=== PATIENT | male | born 1975 | race Caucasian/White ===

== ENCOUNTER 2024-09-22 11:02 | Inpatient (IN) ==
[2024-09-22 11:55] LABS: INR 1.11 (0.85-1.14)
[2024-09-22 11:57] LABS: ABS Basophils 0.1 10^3/uL (0.0-0.1); ABS Eosinophils 0.1 10^3/uL (0.0-0.5); ABS Lymphocytes 2.6 10^3/uL (1.0-4.8); ABS Neutrophils 7.8 10^3/uL (1.5-7.6); ABS Nucleated RBC 0.01 10^3/ul; Eosinophil % 1.1 %; Hematocrit 46.7 % (38-53); Hemoglobin 16.1 g/dL (13.2-16.3); Lymphocyte % 22.6 %; Mean Corpuscular Hemoglobin 30.3 pg (27-33); Mean Corpuscular Hgb Conc 34.4 g/dL (31-36); Nucleated Red Blood Cells % 0.1 %/100WBC (0.0-0.8); Platelet Count 207 10^3/uL (150-450); Red Cell Distribution Width 13.7 % (12-17); White Blood Count 11.7 10^3/uL (3.6-10.2)
[2024-09-22 12:09] LABS: ALT 35 U/L (7-52); Albumin 4.7 g/dL (3.5-5.7); Alkaline Phosphatase 74 U/L (35-149); Anion Gap 6 mmol/L (2-16); Blood Urea Nitrogen 13 mg/dL (6-24); CO2 Carbon Dioxide 30 mmol/L (22-32); Calcium 9.3 mg/dL (8.6-10.3); Chloride 105 mmol/L (101-111); Creatinine, Serum 0.87 mg/dL (0.67-1.17); Globulin 2.3 g/dL (2-4); Glucose 105 mg/dL (70-100); Sodium 141 mmol/L (135-145); Total Bilirubin 0.6 mg/dL (0.2-1.0); eGFR CKD-EPI 105.8 (>60)
[2024-09-22 12:11] LABS: High Sens Troponin Baseline 14 pg/mL (<20)
[2024-09-22 12:34] LABS: TSH Ultra Thyroid Stim Horm 2.24 mcIU/mL (0.34-5.60)
[2024-09-22 12:41] LABS: Free T4 0.63 ng/dL (0.61-1.12)
[2024-09-22 13:56] LABS: Magnesium 1.8 mg/dL (1.9-2.7); Potassium Redraw 4.2 mmol/L (3.5-5.0)
[2024-09-22] MEDS: Magnesium Sulfate 2 gm BAG 2 GM/50 ML BAG IVPB ONE (14:30)
[2024-09-22] MEDS ORDERED: Sulfur Hexaflouride MICROSPHR 25 MG VIAL IV PRN (14:46)
[2024-09-22] MEDS: Metoprolol Tartrate 5 mg VIAL 5 ml VIAL (1 mg/ml) IV ONE (15:19)
[2024-09-22 15:56] LABS: Urine Benzodiazepine Screen None Detected (None Detect); Urine Cannabinoids Screen None Detected (None Detect); Urine Opiates Screen None Detected (None Detect)
[2024-09-22] MEDS ORDERED: Metoprolol Tartrate 5 mg VIAL 5 ml VIAL (1 mg/ml) IV PRN (15:59)
[2024-09-22] MEDS ORDERED: Pantoprazole VIAL 40 MG VIAL IV SCH (16:00)
[2024-09-22] MEDS: Digoxin IV 0.5 MG/2 ML AMP (0.25 MG/ML) IV SLOW PU ONE (16:24)
[2024-09-22] MEDS: Heparin 5000 UNITS/ML 1 mL VIAL IV SCH (16:47)
[2024-09-22] MEDS: Heparin DRIP 25,000 UNITS BAG 25,000 UNITS/250 ML BAG IV SCH (16:48)
[2024-09-23 05:03] LABS: ABS Basophils 0.1 10^3/uL (0.0-0.1); ABS Eosinophils 0.2 10^3/uL (0.0-0.5); ABS Lymphocytes 3.5 10^3/uL (1.0-4.8); ABS Monocytes 0.9 10^3/uL (0.0-1.1); ABS Neutrophils 5.6 10^3/uL (1.5-7.6); ABS Nucleated RBC 0.01 10^3/ul; Eosinophil % 2.1 %; Hematocrit 43.1 % (38-53); Hemoglobin 15.1 g/dL (13.2-16.3); Lymphocyte % 33.9 %; Mean Corpuscular Hgb Conc 35.2 g/dL (31-36); Mean Corpuscular Volume 88.2 fL (80-97); Mean Platelet Volume 8.4 fL (7.5-11.2); Nucleated Red Blood Cells % 0.1 %/100WBC (0.0-0.8); Platelet Count 176 10^3/uL (150-450); Red Blood Count 4.89 10^6/uL (4.06-5.63); Red Cell Distribution Width 13.9 % (12-17); White Blood Count 10.2 10^3/uL (3.6-10.2)
[2024-09-23 05:50] LABS: Calcium 8.5 mg/dL (8.6-10.3); Creatinine, Serum 0.89 mg/dL (0.67-1.17); Magnesium 2.1 mg/dL (1.9-2.7); Potassium 3.7 mmol/L (3.5-5.0); eGFR CKD-EPI 105.1 (>60)
[2024-09-23] MEDS: KCL 20 MEQ/100 ML IVPREMIX 20 MEQ/100 ML BAG IV SCH (10:09)
[2024-09-23 10:16] LABS: HDL Cholesterol 28.1 mg/dL
[2024-09-23] MEDS: Potassium Chloride LIQUID 20 MEQ/15 ML LIQUID PO ONE (10:59)
[2024-09-23 15:14] VITALS: BP 108/67
== END 2024-09-23 16:30 | disposition home or self-care (01) | DRG 201 ==
LOC: ED 11:02 → EDHOLD 15:19 → ICU 16:50
PROVIDERS: ADMIT Internal Medicine; ATTEND Internal Medicine